=== PATIENT | female | born 1955 | race Caucasian/White ===

== ENCOUNTER 2016-08-19 16:26 | Emergency (ER) | payer OTHER ==
[~2016-08-19] VITALS: Ht 162.6 cm; Wt 118.3 kg
[2016-08-19] MEDS ORDERED: PREDNISONE10 M1 PO (18:03)
[2016-08-19] MEDS ORDERED: TESSALON PERLE100 MG PO (18:03)
[2016-08-19] MEDS ORDERED: VENTOLIN HFA18 GM IH (18:03)
[2016-08-19 18:14] VITALS: BP 118/64
== END 2016-08-19 18:15 | disposition home or self-care (01) ==
LOC: EME 16:26
DX: J20.9 Acute bronchitis, unspecified (principal); H92.02 Otalgia, left ear; F17.200 Nicotine dependence, unspecified, uncomplicated
CPT/HCPCS: 71020; 99281; 99283